=== PATIENT | male | born 1970 | race Two or more races ===

== ENCOUNTER 2016-10-05 15:11 | Observation (INO) | payer OTHER ==
[~2016-10-05] VITALS: Ht 180.3 cm; Wt 85.5 kg
--- NOTE | ~2016-10-05 | OR ---
PATIENT'S NAME: TYE LONDONO [facility] AGE: 45 Y [address] ROOM: [place] [address] LOCATION: [facility] ADMIT DATE: 10/05/2016 OR/Procedure Report DISCHARGE DATE: FAMILY PHYSICIAN: PHYSICIAN, NO ATTENDING PHYSICIAN: Reggie Perkins SURGEON: Reggie Perkins MD PEDIATRIC ONCOLOGIST: DATE OF PROCEDURE: 10/05/2016 PREOPERATIVE DIAGNOSIS: Acute cholecystitis. POSTOPERATIVE DIAGNOSES: Cholecystitis with cholelithiasis. PROCEDURE: 1. Laparoscopic cholecystectomy. 2. Extensive enterolysis. FINDINGS: The gallbladder was dilated, hydropic, 3 large stones were present. The anatomy was very difficult to make out as there were adhesions with the gallbladder adherent to the abdominal wall. The gallbladder was hydropic with gallstones present. ESTIMATED BLOOD LOSS: Less than 50 mL. COMPLICATIONS: None. INDICATIONS: The patient is a 45-year-old male who had presented with abdominal pain radiation into his back. He was felt to have cholelithiasis and cholecystitis. We discussed surgery with the patient, the risks, benefits, and alternatives, and he elected to proceed. DESCRIPTION OF PROCEDURE: The patient was taken into the operating room, he was placed supine, given IV sedation, subsequently intubated. A Veress needle was inserted in the left upper quadrant, we tried to avoid his midline incision, pneumoperitoneum was induced. Following this, an optical viewing trocar was placed in the right midabdomen. This was inserted under direct visualization. Camera was inserted. On insertion of the camera, it was very difficult to orient as there were adhesions relatively dense throughout the entire abdomen. Ultimately, we were able to create a small window using blunt dissection and laparoscope and place a 2nd trocar this was placed in the left midabdomen under direct visualization. We were then able to insert laparoscopic scissors and adhesiolysis was begun. We were able to create another window to insert the 3rd trocar in the right subcostal position, this was inserted under direct visualization. Further adhesiolysis was unattended to. This was quite extensive with very dense adhesions, small bowel adhesions PATIENT'S NAME: TYE LONDONO [facility] AGE: 45 Y [address] ROOM: [place] [address] LOCATION: [facility] ADMIT DATE: 10/05/2016 OR/Procedure Report DISCHARGE DATE: FAMILY PHYSICIAN: PHYSICIAN, NO ATTENDING PHYSICIAN: Reggie Perkins throughout the abdomen. We had a difficult time visualizing the anatomy, ultimately could identify the stomach and the left lobe of the liver still had difficulty finding the gallbladder. This was found in a dense matted area of adhesions. With the right lobe of the liver was adherent to the abdominal wall, we were slowly able to lyse the adhesions and identify the gallbladder, the infundibulum was then grasped, the gallbladder was also adherent to the abdominal wall. Ultimately, we were able to dissect down towards the infundibulum, there was a stone right in the neck of the gallbladder. The cystic duct and artery eventually were able to be dissected around circumferentially and we felt comfortable with our anatomy. Both of these structures were then clipped and divided. The gallbladder was then removed from the liver bed and the abdominal wall and all the surrounding adhesions using electrocautery. This was brought out through the epigastric port site. We did have to increase the size of this incision to remove this. Once removed, there were several stones within the gallbladder and the gallbladder had clear bile consistent with hydrops. The operative field was then inspected and it appeared hemostatic. The area was irrigated. Clips appeared to be in good position on the cystic duct and artery. The pneumoperitoneum was then released. The trocars were removed. The midline fascia was closed with 0 Vicryl suture and skin closure with 4-0 Monocryl suture. Steri-Strips and sterile dressings were placed. The patient was extubated and sent to recovery in good condition. MD SHRAVAN PINEDAO/modl /[id number] d: 10/06/16 0346 t: 10/22/1612, OPERATIVE SUMMARY
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
[2016-10-05 16:31] LABS: BASOPHIL # 0.1 K/uL (0.0-0.2); BASOPHIL % 0.3 %; EOSINOPHIL # 0.2 K/uL (0.0-0.5); EOSINOPHIL % 0.9 %; HEMATOCRIT 39.7 % (37.0-53.0); HEMOGLOBIN 13.1 g/dL (12.0-17.0); IMMATURE GRANULOCYTE # 0.2 K/uL (0.0-0.3); IMMATURE GRANULOCYTE % 0.9 %; LYMPHOCYTE # 2.1 K/uL (0.8-4.0); LYMPHOCYTE % 9.1 %; MCH 28.5 pg (27.0-34.0); MCV 86.3 fl (83.0-98.0); MONOCYTE # 1.4 K/uL (0.0-1.0); MPV 7.9 fl (9.4-12.4); NEUTROPHIL # (ANC) 19.3 K/uL (1.4-9.0); NEUTROPHIL % 82.8 %; NRBC % 0 /100WBC (0-0.00); PLATELET COUNT 759 K/uL (150-450); RDW-CV 14.9 % (11.9-14.6)
[2016-10-05 16:32] LABS: WBC 23.3 K/uL (4.0-11.0)
[2016-10-05 16:51] LABS: ALBUMIN 2.7 gm/dL (3.5-5.0); ALK PHOS 98 IU/L (33-138); ALT 16 IU/L (12-78); ANION GAP 11.2 (10.0-19.0); AST 15 IU/L (10-40); BLOOD UREA NITROGEN 8 mg/dL (6-24); CALCIUM 8.6 mg/dL (8.5-10.5); CHLORIDE 107 mMol/L (96-110); CO2 27 mMol/L (22-32); CREATININE 1.1 mg/dL (0.6-1.3); ESTIMATED GFR (MDRD EQUATION) > 60; POTASSIUM 3.2 mMol/L (3.7-5.1); SODIUM 142 mMol/L (135-145); TOTAL BILIRUBIN 0.2 mg/dL (0.0-1.5); TOTAL PROTEIN 6.6 g/dL (6.0-8.4)
[2016-10-05 17:35] LABS: BILIRUBIN URINE NEGATIVE (NEGATIVE); BLOOD URINE NEGATIVE /UL (NEGATIVE); COLOR URINE YELLOW (YELLOW); GLUCOSE URINE NEGATIVE (NEGATIVE); KETONE URINE 15 mg/dL (NEGATIVE); LEUKOCYTES URINE NEGATIVE /UL (NEGATIVE); NITRITE URINE NEGATIVE (NEGATIVE); PROTEIN URINE 30 mg/dL (NEGATIVE); SPEC GRAVITY URINE 1.015 (1.003-1.035); TURBIDITY URINE CLEAR (CLEAR); UROBILINOGEN URINE NORMAL (NORMAL)
[2016-10-05 17:56] LABS: BACTERIA URINE RARE (NEGATIVE); EPITHELIAL URINE RARE #/HPF (NEGATIVE); MUCUS URINE 4+ (NEGATIVE)
[2016-10-05 17:57] LABS: RBC URINE RARE #/HPF (NEGATIVE)
--- NOTE | 2016-10-06 00:36 | NUR ---
PATIENT HAD BEEN HAVING ABDOMINAL PAIN FOR 2 WEEKS AND HAD GOTTEN BETTER THEN HAD GOTTEN WORSE AND THE PATIENT DROVE HIMSELF TO THE ER ON 10/05/16 IN THE AFTERNOON. NO NAUSEA OR VOMITING.
--- NOTE | 2016-10-06 04:42 | NUR ---
Significant Event: Up from PACU at 0010. Has 4 dressings to abdomen. Right dressing has small drainage. Standby assist with transfers. Voided 175 ml. Percocet at 0308. Morphine at 0154. Motrin at 0121. Walked in the halls. On room air. Follow up:
[2016-10-06] MEDS ORDERED: MOTRIN600 MG PO (09:59)
[2016-10-06] MEDS ORDERED: PERCOCET 5-3251 EACH PO (09:59)
--- NOTE | 2016-10-06 10:10 | NUR ---
SPOKE TO PATIENT REGARDING CM AND OUR ROLE. PATIENT LIVES IN OWN HOME HE IS PLANNING ON BEING DISCHARGE HOME LATER TODAY. HE VOICES CONCERNS THAT HE DOES NOT HAVE INSURANCE. I GAVE HIM THE FINANCIAL ASSISTANCE FORM TO COMPLETE. PATIENT DOES NOT ANTICIPATE ANY OTHER NEEDS AT THIS TIME.
--- NOTE | 2016-10-06 13:22 | NUR ---
D: Patient dismissed to home with spouse assistance. Taking analgesic prn for pain with relief. Ambulates to BR/bartholomew with standby assist. GAit steady. Dressings to abdomen intact. Patient and spouse voice understanding of dismissal instructions. Patient dismissed with dismissal instructions, rx and belongings.
== END 2016-10-06 12:50 | disposition disaster alternative care site (69) ==
LOC: GMED 15:11 → G3N 19:52
PROVIDERS: Physician Assistant Medical; ADMIT Surgery
PROC: 0FT44ZZ Resection of Gallbladder, Percutaneous Endoscopic Approach (ICD-10-PCS; principal; 2016-10-05)
PROC: 0DN84ZZ Release Small Intestine, Percutaneous Endoscopic Approach (ICD-10-PCS; 2016-10-05)
DX: K80.00 Calculus of gallbladder with acute cholecystitis without obstruction (principal); K82.8 Other specified diseases of gallbladder; Z90.49 Acquired absence of other specified parts of digestive tract
CPT/HCPCS: J0690; J0694; J1170; J2270; J3010; J7030; J7040; J7120; Q9967